=== PATIENT | female | born 1965 | race American Indian/Alaskan Native ===

== ENCOUNTER 2019-08-17 18:25 | Emergency (ER) | payer SELFPAY ==
--- NOTE | 2019-08-17 18:41 | Emergency Department Report ---
Blank Doc - Documentation Documentation: 54-year-old female that presents with left foot pain. This initial assessment/diagnostic orders/clinical plan/treatment(s) is/are subject to change based on patient's health status, clinical progression and re- assessment by fellow clinical providers in the ED. Further treatment and workup at subsequent clinical providers discretion. Patient/guardians urged not to elope from the ED as their condition may be serious if not clinically assessed and managed. Initial orders include: 1- Patient sent to [facility] for further evaluation and treatment 2- xrays
--- NOTE | 2019-08-17 20:07 | XRay Report ---
LEFT FOOT 3 VIEWS INDICATION / CLINICAL INFORMATION: left foot pain. COMPARISON: None available. FINDINGS: No fracture, dislocation or soft tissue swelling is seen within the left foot. Mild degenerative arth rosis is seen within the first MTP joint and PIP and DIP joints of second through fifth toes. Signer Name: Glen Perez MD Signed: 08/17/2019 8:03 PM Workstation Name: [id number]
[2019-08-17] MEDS ORDERED: traMADol 50 MG TAB PO ONE (20:30)
[2019-08-17] MEDS ORDERED: predniSONE 20 MG TAB PO ONE (20:30)
[2019-08-17 20:52] VITALS: BP 158/97
--- NOTE | 2019-08-17 21:00 | Emergency Department Report ---
ED Extremity Problem HPI - General Chief complaint: Extremity Injury, Lower Stated complaint: KNOT ON LT FOOT Time Seen by Provider: 08/17/19 18:40 Source: patient Mode of arrival: Ambulatory Limitations: No Limitations - History of Present Illness Initial comments: Patient is a 54-year-old -[place] female with no past medical history who presents to the ED with complaint of acute onset persistent severe left foot pain with mild swelling for the last 2 weeks. Patient states that she is active in sports and works out a lot in the gym and suspect that the pain may have been from hyperactivity in the last few weeks. Patient denies fall, traumatic injury, numbness and tingling or weakness of the left foot or left knee. Patient states that the pain is worse with any movement or bearing weight. MD Complaint: extremity pain (left foot), extremity swelling (left foot), joint swelling (left foot), joint paint (left foot) -: Sudden, week(s) (2) Location: left, lower extremity (left foot) -: Yes arthralgia (left foot) Severity scale (0 -10): 6 Quality: aching, sharp, constant Consistency: constant Improves with: nothing Worsens with: weight bearing, walking, exertion, palpation Associated Symptoms: denies other symptoms, arthralgias. denies: chest pain, shortness of breath, myalgias - Related Data Previous Rx's Medication Instructions Recorded Last Taken Type tiZANidine [Zanaflex 4mg TAB] 4 mg PO Q8H PRN #15 tablet 08/17/19 Unknown Rx traMADol [Ultram] 50 mg PO Q6HR PRN #12 tablet 08/17/19 Unknown Rx Allergies Allergy/AdvReac Type Severity Reaction Status Date / Time naproxen Allergy Anaphylaxis Verified 08/17/19 18:39 ondansetron [From Zofran] Allergy Unknown Verified 08/17/19 18:42 metoclopramide [From Reglan] AdvReac Hives Verified 08/17/19 18:39 prochlorperazine AdvReac Hives Verified 08/17/19 18:39 [From Compazine] promethazine [From Phenergan] AdvReac Itching Verified 08/17/19 18:39 ED Review of Systems ROS: Stated complaint: KNOT ON LT FOOT Other details as noted in HPI Constitutional: denies: chills, fever Eyes: denies: eye pain, eye discharge, vision change ENT: denies: ear pain, throat pain Respiratory: denies: cough, shortness of breath, wheezing Cardiovascular: denies: chest pain, palpitations Endocrine: no symptoms reported Gastrointestinal: denies: abdominal pain, nausea, diarrhea Genitourinary: denies: urgency, dysuria, discharge Musculoskeletal: arthralgia (left foot). denies: back pain, joint swelling Skin: denies: rash, lesions Neurological: denies: headache, weakness, paresthesias Psychiatric: denies: anxiety, depression Hematological/Lymphatic: denies: easy bleeding, easy bruising ED Past Medical Hx - Past Medical History Additional medical history: cervical cancer and uterine sarcoma 1997 - Surgical History Hx Cholecystectomy: Yes Hx Appendectomy: Yes Additional Surgical History: hysterectomy - Social History Smoking Status: Never Smoker Substance Use Type: None - Medications Home Medications: Home Medications Medication Instructions Recorded Confirmed Last Taken Type tiZANidine [Zanaflex 4mg TAB] 4 mg PO Q8H PRN #15 tablet 08/17/19 Unknown Rx traMADol [Ultram] 50 mg PO Q6HR PRN #12 tablet 08/17/19 Unknown Rx ED Physical Exam - General Limitations: No Limitations General appearance: alert, in no apparent distress - Head Head exam: Present: atraumatic, normocephalic, normal inspection - Eye Eye exam: Present: normal appearance, PERRL, EOMI Pupils: Present: normal accommodation - ENT ENT exam: Present: normal exam, normal orophraynx, mucous membranes moist, TM's normal bilaterally, normal external ear exam - Neck Neck exam: Present: normal inspection, full ROM - Respiratory Respiratory exam: Present: normal lung sounds bilaterally. Absent: respiratory distress, wheezes, rales, stridor, chest wall tenderness, decreased breath sounds, prolonged expiratory - Cardiovascular Cardiovascular Exam: Present: regular rate, normal rhythm, normal heart sounds. Absent: systolic murmur, diastolic murmur, rubs, gallop - GI/Abdominal GI/Abdominal exam: Present: soft, normal bowel sounds. Absent: tenderness, guarding - Extremities Exam Extremities exam: Present: normal inspection, full ROM, tenderness (palpable left foot tenderness), normal capillary refill, joint swelling (mildly swollen dorsal left foot with mild tenderness) - Back Exam Back exam: Present: normal inspection, full ROM. Absent: tenderness - Neurological Exam Neurological exam: Present: alert, oriented X3, CN II-XII intact, normal gait, reflexes normal - Psychiatric Psychiatric exam: Present: normal affect, normal mood - Skin Skin exam: Present: warm, dry, intact, normal color. Absent: rash ED Course Vital Signs 08/17/19 08/17/19 08/17/19 18:35 18:39 20:50 Temperature 98.4 F 98.4 F Pulse Rate 105 H 105 H Respiratory 18 18 18 Rate Blood Pressure 154/90 Blood Pressure 154/90 [Left] O2 Sat by Pulse 99 99 Oximetry 08/17/19 20:51 Temperature 97.9 F Pulse Rate 98 H Respiratory 18 Rate Blood Pressure Blood Pressure 158/97 [Left] O2 Sat by Pulse 98 Oximetry - Reevaluation(s) Reevaluation #1: 08/17/19 21:18 This is a 54-year-old female who presented to the ED with nontraumatic left foot pain. In the ED, patient is alert and oriented 3 and is not in distress, on the phone and talking to relatives and friends during the physical exam. Left foot x-ray shows no acute fractures or subluxations. This of the physical exam findings, patient's pain is likely due to tendon injury or tendon inflammation of the left foot. Patient was treated in the ED for pain in the left foot was splinted with Christopher wrap. Patient discharged home on pain medications and was advised follow-up with her primary care physician in 5-7 days for reevaluation. Patient was also advised to return to the ED immediately if symptoms get worse. ED Medical Decision Making - Radiology Data Radiology results: report reviewed, image reviewed Left foot x-ray shows no acute fractures or subluxations. - Medical Decision Making This is a 54-year-old female who presented to the ED with nontraumatic left foot pain. In the ED, patient is alert and oriented 3 and is not in distress, on the phone and talking to relatives and friends during the physical exam. Left foot x-ray shows no acute fractures or subluxations. This of the physical exam findings, patient's pain is likely due to tendon injury or tendon inflammation of the left foot. Patient was treated in the ED for pain in the left foot was splinted with Christopher wrap. Patient discharged home on pain medications and was advised follow-up with her primary care physician in 5-7 days for reevaluation. Patient was also advised to return to the ED immediately if symptoms get worse. - Differential Diagnosis foot tendonitis; left foot muscle strain Critical care attestation.: If time is entered above; I have spent that time in minutes in the direct care of this critically ill patient, excluding procedure time. ED Disposition Clinical Impression: Tendinitis of left foot Muscle strain of left foot Qualifiers: Encounter type: initial encounter Qualified Code(s): S96.912A - Strain of unspecified muscle and tendon at ankle and foot level, left foot, initial encounter Disposition: TO HOME OR SELFCARE Is pt being admited?: No Does the pt Need Aspirin: No Condition: Stable Instructions: Muscle Strain (ED) Additional Instructions: Take medication with food, drink plenty of fluids and follow-up with your primary care physician in 7-10 days for reevaluation. Return to the ED immediately if symptoms get worse. Prescriptions: traMADol [Ultram] 50 mg PO Q6HR PRN #12 tablet PRN Reason: Pain tiZANidine [Zanaflex 4mg TAB] 4 mg PO Q8H PRN #15 tablet PRN Reason: Pain , Severe (7-10) Referrals: [facility] [Outside] - 3-5 Days Time of Disposition: 21:01 Print Language: TAJIK
== END 2019-08-17 21:47 | disposition home or self-care (01) ==
LOC: ED 18:25
DX: S96.912A Strain of unspecified muscle and tendon at ankle and foot level, left foot, initial encounter (principal); Z79.899 Other long term (current) drug therapy; Z88.8 Allergy status to other drugs, medicaments and biological substances; Z90.49 Acquired absence of other specified parts of digestive tract; Z90.710 Acquired absence of both cervix and uterus; X58.XXXA Exposure to other specified factors, initial encounter; Y93.89 Activity, other specified; Y92.89 Other specified places as the place of occurrence of the external cause; Y99.8 Other external cause status
CPT/HCPCS: 73630; 99283; J7512